=== PATIENT | male | born 1965 | race Caucasian/White ===

== ENCOUNTER 2021-04-14 20:36 | Inpatient (IN) | payer BC, SELFPAY ==
[~2021-04-14] VITALS: Ht 185.4 cm; Wt 106.6 kg
[2021-04-14] MEDS: METOPROLOL 25 MG TAB PO SCH (02:41)
[2021-04-14] MEDS: NACL 0.9% 1,000 ML IV SCH (02:45)
[2021-04-14 20:38] VITALS: BP 139/103
--- NOTE | 2021-04-14 20:40 | NUR ---
to bed ambulatory
[2021-04-14] MEDS ORDERED: NACL 0.9% 1,000 ML IV ONE (20:55)
[2021-04-14] MEDS ORDERED: LORazepam 2 MG/ML VIAL IVP ONE (21:00)
[2021-04-14] MEDS ORDERED: ADENOSINE 6 MG/2 ML VIAL IVP ONE ×2 (21:01→21:05)
[2021-04-14] MEDS ORDERED: LORazepam 2 MG/ML VIAL ONE (21:02)
--- NOTE | 2021-04-14 21:15 | NUR ---
patient bib self from home c/o rapid heart rate sudden onset, along with sorethroat, chest hurts , s/p playing bowling, with cup of coffee at 1800hours. patient moist and flushed. said that was not feeling well. pmh: htn, hdl allergies: penicillins
[2021-04-14] MEDS ORDERED: DILTIAZEM 25 MG/5 ML VIAL IVP ONE ×2 (21:40→23:08)
[2021-04-14 21:45] LABS: BASOPHILS # (AUTO) 0.1 K/uL (0.00-0.22); BASOPHILS % (AUTO) 0.9 % (0.0-2.0); EOSINOPHILS # (AUTO) 0.3 K/uL (0-0.4); EOSINOPHILS % (AUTO) 3.4 % (0.0-4.0); HEMATOCRIT 47.9 % (36-52); LYMPHOCYTES # (AUTO) 2.6 K/uL (2.0-11.5); LYMPHOCYTES % (AUTO) 26.6 % (20.5-51.1); MEAN CORPUSCULAR HEMOGLOBIN 33 pg (27-31); MEAN CORPUSCULAR HGB CONC 36 g/dL (33-37); MONOCYTES % (AUTO) 10.3 % (1.7-9.3); NEUTROPHILS # (AUTO) 5.6 K/uL (1.8-7.7); NEUTROPHILS % (AUTO) 58.8 % (42.2-75.2); PLATELET COUNT (AUTO) 246 K/uL (140-450); RED BLOOD CELL COUNT(AUTO) 5.15 MIL/uL (4.20-6.10); RED CELL DISTRIBUTION WIDTH 12.3 % (11.6-13.7); WHITE BLOOD COUNT (AUTO) 9.6 K/uL (4.8-10.8)
[2021-04-14 21:58] LABS: ALBUMIN 3.7 g/dL (3.4-5.0); ANION GAP 17.4 (8-16); CARBON DIOXIDE 26.1 mmol/L (21-32); CREATININE 1.2 mg/dL (0.6-1.3); POTASSIUM 3.5 mmol/L (3.5-5.1); TOTAL BILIRUBIN 0.5 mg/dL (0.0-1.0)
[2021-04-14] MEDS ORDERED: POTASSIUM CHLORIDE 10 MEQ TABER PO PRN (23:30)
[2021-04-14] MEDS ORDERED: ACETAMINOPHEN 325 MG TAB PO PRN (23:30)
[2021-04-14] MEDS ORDERED: HYDROcodone/APAP 7.5/325 MG 1 TAB PO PRN (23:30)
[2021-04-14] MEDS ORDERED: ONDANSETRON 4 MG/2 ML VIAL IM/IVP PRN (23:30)
[2021-04-14] MEDS ORDERED: DOCUSATE SODIUM 100 MG GELCAP PO PRN (23:30)
[2021-04-14] MEDS ORDERED: guaiFENesin DM 200/20 MG-10 ML 10 ML UDC PO PRN (23:30)
[2021-04-14] MEDS ORDERED: ZOLPIDEM 5 MG TAB PO PRN (23:30)
--- NOTE | 2021-04-14 23:42 | NUR ---
PT MOVED TO BED 9
[2021-04-15 00:47] LABS: PROTHROMBIN TIME 30.2 secs (10.8-13.4)
[2021-04-15 01:06] LABS: APPEARANCE,URINE CLEAR (CLEAR); BILIRUBIN,URINE NEGATIVE (NEGATIVE); BLOOD, URINE NEGATIVE (NEGATIVE); COLOR,URINE YELLOW (YELLOW); LEUKOCYTE ESTERASE ,URINE NEGATIVE (NEGATIVE); NITRITE, URINE NEGATIVE (NEGATIVE); UGLUCOSE NEGATIVE (NEGATIVE)
[2021-04-15 01:34] LABS: BARBITURATE, URINE NEGATIVE ng/ml (NEG <=200)
[2021-04-15 01:35] LABS: BENZODIAZEPINE, URINE NEGATIVE ng/mL (NEG <=200); CANNABINOID, URINE NEGATIVE ng/mL (NEG <=50); COCAINE, URINE POSITIVE ng/mL (NEG <=300); OPIATE, URINE NEGATIVE ng/mL (NEG <=2000); PHENCYCLIDINE SCREEN,URINE NEGATIVE ng/mL (NEG <=25)
[2021-04-15 02:31] LABS: CHOL/HDL RATIO 4.7 (1-4.5); FREE T4 (FREE THYROXINE) 0.77 ng/dL (0.76-1.46); MAGNESIUM 1.9 mg/dL (1.8-2.4); PHOSPHORUS 3.2 mg/dL (2.5-4.9); THYROID STIMULATING HORMONE 2.55 uIU/mL (0.34-3.74)
--- NOTE | 2021-04-15 02:45 | NUR ---
patient c/o difficulty sleeping, asked to see if there was anything to help patient fall aslee--- PRN ambien for insomnia available.
--- NOTE | 2021-04-15 03:00 | NUR ---
wasted 100mg diltiazem and 25mg given to patient.
[2021-04-15] MEDS ORDERED: ATOR20TA PO (04:35)
[2021-04-15] MEDS ORDERED: HYDR-4004 PO (04:35)
--- NOTE | 2021-04-15 05:03 | NUR ---
Patient appears to be resting comfortably in bed-- eyes closed, fluids infusing, and semi fowlers. Vital Signs within normal limits. Respirations even and unlabored. No signs of distress noted. 0/10 pain. Safety measures are in place, attached to monitor and will continue to monitor patient.
[2021-04-15 07:19] LABS: BASOPHILS % (AUTO) 0.6 % (0.0-2.0); EOSINOPHILS # (AUTO) 0.2 K/uL (0-0.4); EOSINOPHILS % (AUTO) 2.1 % (0.0-4.0); HEMATOCRIT 43.5 % (36-52); HEMOGLOBIN 15.5 g/dL (12.0-18.0); LYMPHOCYTES # (AUTO) 2.1 K/uL (2.0-11.5); LYMPHOCYTES % (AUTO) 26.4 % (20.5-51.1); MEAN CORPUSCULAR HEMOGLOBIN 33 pg (27-31); MEAN CORPUSCULAR HGB CONC 36 g/dL (33-37); MEAN CORPUSCULAR VOLUME 92.7 fL (80-94); MONOCYTES # (AUTO) 0.9 K/uL (0.8-1.0); MONOCYTES % (AUTO) 10.9 % (1.7-9.3); NEUTROPHILS # (AUTO) 4.9 K/uL (1.8-7.7); PLATELET COUNT (AUTO) 179 K/uL (140-450); RED BLOOD CELL COUNT(AUTO) 4.69 MIL/uL (4.20-6.10); RED CELL DISTRIBUTION WIDTH 12.3 % (11.6-13.7); WHITE BLOOD COUNT (AUTO) 8.1 K/uL (4.8-10.8)
--- NOTE | 2021-04-15 07:30 | NUR ---
Pt report given to Mary EDMONDS. Transfer of care at this time.
--- NOTE | 2021-04-15 07:31 | NUR ---
RECEIVED REPORT FROM GREY GRIDER. TRANSFER OF CARE AT THIS TIME.
[2021-04-15 07:44] LABS: ANION GAP 14.7 (8-16); CREATININE 1.1 mg/dL (0.6-1.3); POTASSIUM 3.7 mmol/L (3.5-5.1)
--- NOTE | 2021-04-15 08:03 | NUR ---
PT RESTING, AWAKE ALERT, VSS, WILL CONTINUE TO MONITOR.
--- NOTE | 2021-04-15 08:41 | NUR ---
PROVIDED BREAKFAST TRAY, HOB ELEVATED, WILL CONTINUE TO MONITOR.
[2021-04-15 09:00] VITALS: BP 179/107
--- NOTE | 2021-04-15 09:00 | NUR ---
GAVE REPORT TO GREY BUTLER FOR PENDING TRANSFER. ETA 10MINUNTES.
--- NOTE | 2021-04-15 09:00 | NUR ---
PT ARRIVED FROM ER VIA GURNEY. AMBULATED TO THE BED WITH STEADY GAIT. A&OX4. ON RA WITH BREATHING UNLABORED. SKIN IS WARM, DRY, AND INTACT. BOWEL SOUNDS PRESENT. PT DENIES CHEST PAIN. SR ON TELE MONITOR. IV'S ARE INTACT IN THE RIGHT HAND AND LEFT AC. FLUIDS WILL BE STARTED SHORTLY ORDERED. PT IS STABLE. PLAN OF CARE DISCUSSED WITH ER NURSE.
[2021-04-15] MEDS: METOPROLOL 25 MG TAB PO SCH (09:55)
[2021-04-15] MEDS: PANTOPRAZOLE 40 MG TABEC PO SCH (09:55)
[2021-04-15] MEDS: OSELTAMIVIR PHOSPHATE 75 MG CAP PO SCH ×2 (09:55→20:06)
[2021-04-15] MEDS: NACL 0.9% 1,000 ML IV SCH (10:15)
--- NOTE | 2021-04-15 11:00 | NUR ---
PT IS AWAKE, SITTING UP IN BED. WATCHING TV AND ON CELL PHONE. BREATHING IS UNLABORED. DENIES ANY PAIN AT THIS TIME. PT IS STABLE.
[2021-04-15] MEDS ORDERED: OSELTAMIVIR PHOSPHATE 75 MG CAP PO SCH (11:10)
[2021-04-15 12:00] VITALS: BP 147/97
--- NOTE | 2021-04-15 13:00 | NUR ---
ROUNDED ON PT. HE IS INQUIRING ABOUT THE [employer] OPERATOR AND OTHER SPECIALTY DOCTORS AND EXPRESSING THAT HE WANTS TO GO HOME SOON. EXPLAINED TO HIM THAT THEY WILL BE HERE LATER IN THE AFTERNOON. PT STATES HE IS FEELING MUCH BETTER. NO DISTRESS NOTED. WILL CONTINUE TO MONITOR.
--- NOTE | 2021-04-15 14:32 | NUR ---
PATIENT HAS BEEN SCREENED AND CATEGORIZED LOW NUTRITION RISK. PATIENT WILL BE SEEN WITHIN 7 DAYS OF ADMISSION. 04/21/[address]
--- NOTE | 2021-04-15 14:56 | NUR ---
DR. BOX AT BEDSIDE ASSESSING PT. DAUGHTER ALSO AT BEDSIDE. PT IS STABLE AND SPEAKING APPROPRIATELY. NO DISTRESS NOTED.
[2021-04-15] MEDS: amLODIPine 5 MG TAB PO SCH (15:17)
[2021-04-15 16:00] VITALS: BP 145/92
--- NOTE | 2021-04-15 17:00 | NUR ---
SIGNIFICANT OTHER AT BEDSIDE. PT IS STABLE. NO DISTRESS NOTED. ON RA AND IV INTACT. CALL LIGHT WITHIN REACH.
--- NOTE | 2021-04-15 19:24 | NUR ---
ENDORSED PT TO [employer] PROGRAMMER NURSE FOR CONTINUITY OF CARE. PT IS STABLE. PLAN OF CARE DISCUSSED.
--- NOTE | 2021-04-15 19:25 | NUR ---
RECEIVED BEDSIDE REPORT FROM DAY RN. PT IS OBSERVED RESTING IN BED APPEARS TO BE ASLEEP. CHEST RISE AND FALL NOTED. RESPIRATIONS ARE EQUAL AND UNLABORED ON ROOM AIR. SKIN IS WARM,DRY AND INTACT. IV ON R CHEEK 18G IVF INFUSING PER ORDERS. LAC 20G SL. ON DROPLET ISOLATION FOR FLU B+. SAFETY MEASURES ARE IN PLACE. CALL LIGHT IS WITHIN REACH,
--- NOTE | 2021-04-15 19:25 | NUR ---
RECEIVED PT REPORT FROM AM NURSE FOR CONTINUITY OF CARE. PT RESTING IN BED. RR EVEN AND UNLABORED WITH VISIBLE CHEST RISE. NAD. ALL SAFETY MEASURES IN PLACE. WILL CONTINUE TO OBSERVE.
--- NOTE | 2021-04-15 20:02 | NUR ---
PT IS AAOX4. VSS. JARED MED GIVEN. EDUCATION GIVEN PT VERBALIZED UNDERSTANDING. ALL NEEDS MET. CALL LIGHT IS WITHIN REACH. WILL CONTINUE TO MONITOR.
--- NOTE | 2021-04-15 20:05 | NUR ---
PT A&OX4. REMAINS ON DROPLET ISOLATION FOR FLU B+. VSS AFEBRILE. HS MEDS GIVEN. TOLERATED WELL. NO C/O PAIN. R HAND 18G SL AND LAC 20G SL INTACT. CALL LIGHT WITHIN REACH. AL SAFETY MEASURES IN PLACE. WILL CONTINUE TO OBSERVE.
[2021-04-15 20:57] VITALS: BP 145/84
--- NOTE | 2021-04-15 22:00 | NUR ---
FREQ ROUNDS. PT ASLEEP. RR EVEN AND UNLABORED WITH VISIBLE CHEST RISE. ALL SAFETY MEASURES IN PLACE.WILL CONTINUE TO OBSERVE.
[2021-04-16] VITALS: BP 134/94
--- NOTE | 2021-04-16 | NUR ---
PT SLEEPING BUT EASILY AROUSABLE TO REPLACE LEAD FOR TELEMETRY. RR EVEN AND UNLABORED WITH VISIBLE CHEST RISE. DENIES PAIN. CONTINUE TO OBSERVE.
--- NOTE | 2021-04-16 03:00 | NUR ---
FREQ ROUNDS. PT SLEEPING. RR EVEN AND UNLABORED WITH EQUAL CHEST RISE. NAD. CALL LIGHT WITHIN REACH. WILL CONTINUE TO OBSERVE.
[2021-04-16] MEDS: NACL 0.9% 1,000 ML IV SCH (03:46)
[2021-04-16 04:09] VITALS: BP 135/91
--- NOTE | 2021-04-16 04:37 | NUR ---
PT VSS. AFEBRILE. DENIES PAIN, ALL NEEDS MET. CONTINUE TO MONITOR.
[2021-04-16 07:19] LABS: BASOPHILS # (AUTO) 0.1 K/uL (0.00-0.22); BASOPHILS % (AUTO) 0.9 % (0.0-2.0); EOSINOPHILS # (AUTO) 0.3 K/uL (0-0.4); EOSINOPHILS % (AUTO) 4.4 % (0.0-4.0); HEMATOCRIT 41.6 % (36-52); HEMOGLOBIN 14.6 g/dL (12.0-18.0); LYMPHOCYTES % (AUTO) 28.7 % (20.5-51.1); MEAN CORPUSCULAR HEMOGLOBIN 33 pg (27-31); MEAN CORPUSCULAR HGB CONC 35 g/dL (33-37); MEAN CORPUSCULAR VOLUME 94.2 fL (80-94); MONOCYTES # (AUTO) 0.7 K/uL (0.8-1.0); MONOCYTES % (AUTO) 10.3 % (1.7-9.3); NEUTROPHILS % (AUTO) 55.7 % (42.2-75.2); PLATELET COUNT (AUTO) 179 K/uL (140-450); RED BLOOD CELL COUNT(AUTO) 4.42 MIL/uL (4.20-6.10); RED CELL DISTRIBUTION WIDTH 12.1 % (11.6-13.7); WHITE BLOOD COUNT (AUTO) 7.1 K/uL (4.8-10.8)
[2021-04-16 07:29] LABS: ANION GAP 12.8 (8-16); POTASSIUM 3.8 mmol/L (3.5-5.1)
--- NOTE | 2021-04-16 07:30 | NUR ---
ENDORSED REPORT TO AM NURSE FOR CONTINUITY OF CARE.
--- NOTE | 2021-04-16 07:32 | NUR ---
RECEIVED PATIENT REPORT FROM [employer]ER NURSE. PT IS A&OX4. ON RA WITH BREATHING UNLABORED. SKIN IS WARM, DRY, AND INTACT. PT DENIES CHEST PAIN. SR ON TELE MONITOR. IV'S ARE INTACT IN THE RIGHT HAND AND LEFT AC. PLAN OF CARE DISCUSSED. SAFETY PRECAUTIONS IN PLACE. CALL LIGHT WITHIN REACH. WILL CONTINUE TO MONITOR.
[2021-04-16 08:00] VITALS: BP 147/88
[2021-04-16] MEDS ORDERED: ATORVASTATIN 20 MG TAB PO SCH (09:00)
[2021-04-16] MEDS: PANTOPRAZOLE 40 MG TABEC PO SCH (09:22)
[2021-04-16] MEDS: OSELTAMIVIR PHOSPHATE 75 MG CAP PO SCH (09:22)
[2021-04-16] MEDS: amLODIPine 5 MG TAB PO SCH (09:22)
--- NOTE | 2021-04-16 09:30 | NUR ---
ALL SCHEDULED MEDS GIVEN. PT IS STABLE. NO DISTRESS NOTED. WILL CONTINUE TO MONITOR.
--- NOTE | 2021-04-16 10:00 | NUR ---
PATIENT REQUESTED TO LEAVE AMA. EDUCATED PATIENT THE RISKS AND BENEFITS IN LEAVING AMA. PT VERBALIZED UNDERSTANDING AND STILL INSISTED ON LEAVING AMA. INFORMED ATTENDING MD AND THEY ARE AWARE OF THE SITUATION
--- NOTE | 2021-04-16 10:15 | NUR ---
ENDORSED THE RISKS AND BENEFITS TO PATIENT REGARDING AMA. PATIENT SIGNED THE FORM.
--- NOTE | 2021-04-16 10:25 | NUR ---
PATIENT LEFT AMA. BOTH IVS REMOVED AND ID WRIST BAND REMOVED. AMA FORM SIGNED.
[2021-04-16 15:06] LABS: T4 (THYROXINE) 5.1 ug/dL (4.5-12.0)
== END 2021-04-16 10:33 | disposition left against medical advice (07) | DRG 309 ==
LOC: MED 20:36 → MTU 22:56
PROVIDERS: ADMIT Family Medicine; ATTEND Family Medicine
DX: I47.1 Supraventricular tachycardia (principal); E87.0 Hyperosmolality and hypernatremia; F14.10 Cocaine abuse, uncomplicated; F15.10 Other stimulant abuse, uncomplicated; I10 Essential (primary) hypertension; E78.5 Hyperlipidemia, unspecified; E86.0 Dehydration; Z53.29 Procedure and treatment not carried out because of patient's decision for other reasons; Z20.822 Contact with and (suspected) exposure to COVID-19; R74.01 Elevation of levels of liver transaminase levels; F10.10 Alcohol abuse, uncomplicated; J10.1 Influenza due to other identified influenza virus with other respiratory manifestations; Z88.0 Allergy status to penicillin; Z71.41 Alcohol abuse counseling and surveillance of alcoholic; Z71.51 Drug abuse counseling and surveillance of drug abuser
CPT/HCPCS: 36415; 71045; 80048; 80053; 80305; 81003; 82150; 83036; 83690; 83735; 83880; 84100; 84436; 84439; 84443; 84479; 84484; 85025; 85610; 85730; 87081; 87804; 93005; 96361; 96374; 96375; 99285; J0153; J2060; J3490; Q0092